=== PATIENT | male | born 1930 | race Caucasian/White ===

== ENCOUNTER 2016-06-23 09:59 | Inpatient (IN) | payer MEDICARE ==
--- NOTE | ~2016-06-23 | CN ---
Consultation Report [facility] [address] [place]. [address] NAME: TERRY MALONE : 31 STATUS : ADM IN PAT#: [id number] AGE: 86 ADM/REG DATE : 06/23/16 MR#: [id number] REPORT SERV DATE: 06/25/16 DICTATED BY: CARMEN MANZANARES DATE: 06/24/16 REPORT STATUS : Draft TRANSCRIBED BY: MODL DATE: 06/24/16 PULMONARY CONSULTATION DATE OF CONSULTATION: 06/24/2016 REASON FOR CONSULTATION: Worsening infiltrates. HISTORY OF PRESENT ILLNESS: Mr. Malone is an 86-year-old, white male, with minimal smoking history who was admitted with three-week history of cough productive of very thick/sticky yellow sputum with minimal "specks" of bright red blood. He was found to have multifocal infiltrates with bilateral effusions on CT angiogram of the chest that was worse when compared to an outside CT scan of the chest done 05/31/2016 so Pulmonary was consulted for assistance. He has had outpatient oral antibiotics including Levaquin and azithromycin without improvement in his symptoms. He reports a three-week history of malaise, dyspnea, and chills but no weight loss. He describes a good appetite over the past several weeks. He has had a similar episode approximately one year ago with a poor response to antibiotics and at that time, he had 31 pound weight loss. He eventually improved with more aggressive treatment and has been okay from a Pulmonary standpoint since then, until his current illness. Since admission, he has had IV antibiotics, bronchodilators, and IV Lasix along with supplemental oxygen. He reports now he feels significantly better. He is on Zosyn and Levaquin. PAST MEDICAL HISTORY: 1. Pneumonia approximately one year ago. 2. Hypothyroidism. 3. GERD. 4. Degenerative joint disease. 5. Depression/anxiety. 6. Previous bilateral inguinal hernia repair years ago. FAMILY HISTORY: He denies a family history of pulmonary diseases. SOCIAL HISTORY: Mr. Malone smoked less than one pack of cigarettes per day while in the . He states he smoked for approximately two years and quit more than 50 years ago. He denies ethanol intake, past/present drug use, chewing tobacco, or occupational exposures. He is and does not have children. MEDICATIONS: Outpatient and inpatient medications were reviewed and are as documented in the record. He was on no outpatient pulmonary medications. ALLERGIES: HE DENIES MEDICATION ALLERGIES. Consultation Report [place] [id number] [facility] [place]. [address] NAME: TERRY MALONE : 31 STATUS : ADM IN PAT#: [id number] AGE: 86 ADM/REG DATE : 06/23/16 MR#: [id number] REPORT SERV DATE: 06/25/16 DICTATED BY: CARMEN MANZANARES DATE: 06/24/16 REPORT STATUS : Draft TRANSCRIBED BY: MODL DATE: 06/24/16 REVIEW OF SYSTEMS: A 10-point system review was conducted and is remarkable for the symptoms as described in the history of present illness. He denies weight loss, as noted above. He denies chest pain or wheezing. PHYSICAL EXAMINATION: VITAL SIGNS: Temperature 96.9 degrees, heart rate 70, blood pressure 109/55, respiratory rate 18, and oxygen saturation 99% on supplemental oxygen at a flow rate of 4 L/minute. GENERAL: A well-nourished, well-developed white male. Alert, oriented, no apparent distress. HEENT: Normocephalic. Atraumatic. There is no scleral icterus. The conjunctivae are clear. The oropharynx is clear. NECK: Supple. No lymphadenopathy was appreciated. LUNGS: There are diminished breath sounds at both bases. There are faint bibasilar crackles. There are few coarse rhonchi. No wheezes were noted. HEART: Regular rate and rhythm. No ectopy was appreciated. ABDOMEN: Soft. Nontender. Nondistended. There are normal bowel sounds in all four quadrants. BILATERAL EXTREMITIES: There is no clubbing, cyanosis, or edema. NEUROLOGICAL: A limited exam was found to be nonfocal. SKIN: No rashes were noted. LABORATORY RESULTS: Labs were reviewed and are as documented in the record. Notable labs include a white blood cell count of 8.7. The procalcitonin is less than 0.05. The BNP is 3175.2. On admission, an arterial blood gas revealed a pH of 7.43, pCO2 of 25, and pO2 of 59. There is a sputum culture pending. IMAGING: The chest CT angiogram done this admission revealed a right upper lobe infiltrate and patchy left upper lobe infiltrates as well as mild mediastinal lymphadenopathy and small bilateral pleural effusions. The left upper lobe infiltrate is new and the right upper lobe infiltrate has increased significantly when compared with an outside CT scan of the chest done 05/31/2016. ASSESSMENT AND PLAN: Mr. Malone is an 86-year-old, white male, former smoker, with worsening infiltrates, productive cough, and scant hemoptysis consistent with infection. Additionally, he has bilateral pleural effusions and an elevated BNP consistent with volume overload. RECOMMEND: 1. Diuresis. 2. Continue antibiotics-I would continue Zosyn and Levaquin. 3. Pulmonary toilet. Add EZPAP and flutter valve to his regimen. Consultation Report [facility] [address] [place]. [address] NAME: TERRY MALONE : 31 STATUS : ADM IN [facility]#: [id number] AGE: 86 ADM/REG DATE : 06/23/16 MR#: [id number] REPORT SERV DATE: 06/25/16 DICTATED BY: CARMEN MANZANARES DATE: 06/24/16 REPORT STATUS : Draft TRANSCRIBED BY: KRISTAL DATE: 06/24/16 4. Bronchodilators. He is currently on DuoNeb but this could be changed to albuterol only. 5. Add nebulized steroids as this may help with wheezing that was noted on previous exam done by another physician. Recommend followin. His chest imaging. If there is no improvement clinically or radiographically, then would consider bronchoscopy. Thank you very much for this consultation. PS/MODL Carmen Manzanares M.D. / [id number] CC: Meliza Soto M.D.
--- NOTE | ~2016-06-23 | CN ---
Consultation Report [facility] [address] [place]. [address] NAME: TERRY ABRAHAM : 32 STATUS : ADM IN PAT#: [id number] AGE: 86 ADM/REG DATE : 06/23/16 MR#: [id number] REPORT SERV DATE: 06/24/16 DICTATED BY: JENSEN KAY DATE: 06/23/16 REPORT STATUS : Draft TRANSCRIBED BY: MODL DATE: 06/23/16 CARDIOLOGY CONSULT DATE OF CONSULTATION: REFERRING REASON: Question of heart failure, hemoptysis, and pneumonia. HISTORY OF PRESENT ILLNESS: This is an 86-year-old white gentleman, who is unfortunately very poor historian and we do not have any records at [facility]. He was admitted earlier today to Hospitalist Service for recurrent pneumonia, lung mass, and hemoptysis. Information has been obtained from the patient and his . He has been followed by his primary care physician. He has reportedly two pneumonias recently and has been started on antibiotics. He has been coughing up yellow sputum over the last six weeks with four weeks coughing of blood. Small amount of the blood every day with cough noted general weakness and shortness of breath, but no chest pain. No lower extremity edema. No weight changes. He denied any recent fever or chills. He had a CT of the chest performed one week ago at the [facility] and has pending pulmonary evaluation, but before this could happen, he was admitted to hospital. Chest x-ray in the emergency revealed perihilar infiltrates with some right upper lung infiltrate. This has been confirmed by CT, which revealed a complex mass with right upper lobe infiltrate and small pleural effusion. Brain natriuretic peptide is elevated up to 1800. The patient admitted to have some palpitations particularly on the left side. He has reported abnormal exercise treadmill 10 years ago. Elsewhere, he has never been told about abnormal electrocardiogram. EKG in the emergency room revealed left bundle-branch block which is likely underlying atrial fibrillation, heart rate in the 80s. The patient is currently chest pain free on oxygen via nasal cannula without any palpitations or chest pain. He is not on monitor bed. No cardiac enzymes were obtained. No fall history obtainable from the patient. PAST MEDICAL HISTORY: COPD with remote history of smoking. Denies history of recurrent pneumonia. Denies gastroesophageal reflux disease. Denies hearing loss. Denies history of hernia repair. ALLERGIES: NO KNOWN DRUG ALLERGIES. HOME MEDICATIONS: Zithromax, Flonase, hydrocodone, Synthroid, nortriptyline 50 mg once a day, omeprazole 20 mg twice a day, Zoloft 100 mg once a day, and Restoril 15 mg once a day. SOCIAL HISTORY: The patient is . He is retired. He reportedly quit smoking more than 50 years ago. Did not drink alcohol or use street drugs. He is not using oxygen at home. He is walking without any support. FAMILY HISTORY: Negative for sudden cardiac premature in the family. PHYSICAL EXAMINATION: Consultation Report [address] [place]. [address] NAME: TERRY ABRAHAM : 32 STATUS : ADM IN [facility]#: [id number] AGE: 86 ADM/REG DATE : 06/23/16 MR#: [id number] REPORT SERV DATE: 06/24/16 DICTATED BY: JENSEN KAY DATE: 06/23/16 REPORT STATUS : Draft TRANSCRIBED BY: KRISTAL DATE: 06/23/16 GENERAL: Elderly gentleman, in no acute distress, hard hearing. VITAL SIGNS: Blood pressure 129/87, heart rate 80, irregularly irregular. LUNGS: Have wheezing and few crackles over the right lung. HEART: Irregularly irregular heart rate. EXTREMITIES: Lower extremities, decreased pedal pulses bilaterally, but no edema. HEENT - Pupils reactive to light and accommodation. Moist mucosa membrane. NECK: No JVD. Normal carotid upstroke. No carotid bruits. COR: Normal S1, S2. No S3 or S4. No significant rub or murmurs. ABD: Soft, nontender, nondistended. EXT: No edema. Pedal pulses strong and equal bilaterally. SKIN: Warm with normal turgor. MS - No kyphosis. NEURO/PSY - Alert and oriented. Nonfocal. LABORATORY DATA: CBC remarkable for hemoglobin 12. INR 1.4. BNP 1890. Chest x-ray and CT as above. Electrocardiogram revealed what looks like to be irregularly irregular wide- complex rate with left bundle morphology likely underlying atrial fibrillation. ASSESSMENT AND PLAN: 1. Recurrent pneumonia with concern for right lung mass and hemoptysis. 2. Left bundle-branch block of unknown duration. 3. Likely atrial fibrillation. The patient should be transferred to monitored bed. His cardiac enzymes should be checked. We will start him on carvedilol and plan for echocardiogram tomorrow. We will also recheck electrocardiogram and TSH. He should be seen by selling specialist. He may have tuberculosis versus lung cancer due to his hemoptysis over the last month and concerning CT. No previous cardiac history. Thank you for the consult. CAMPBELL/KRISTAL Jensen Kay M.D. / [id number] CC: MD Zacarias Dorsey M.D.
--- NOTE | ~2016-06-23 | CN ---
Consultation Report [facility] [address] [place]. [address] NAME: TERRY ABRAHAM : 31 STATUS : ADM IN PAT#: [id number] AGE: 86 ADM/REG DATE : 06/23/16 MR#: [id number] REPORT SERV DATE: 06/27/16 DICTATED BY: FRANKIE BRIGGS DATE: 06/27/16 REPORT STATUS : Draft TRANSCRIBED BY: MODL DATE: 06/27/16 CONSULTATION DATE OF CONSULTATION: REASON FOR CONSULTATION: Chronic kidney disease with possible upcoming cardiac catheterization. HISTORY OF PRESENT ILLNESS: This is a very pleasant 86-year-old male patient, whom is accompanied at bedside by his . We are asked to evaluate the patient by Dr. Viviane Valdez for evaluation of chronic kidney disease with plan for possible cardiac catheterization. The patient was admitted initially on 06/23/2016, with the complaint of increasing shortness of breath, cough, and hemoptysis for approximately three weeks. He was noted to have bilateral upper lobe pneumonia and was placed inpatient in favor of further antibiotics and supportive workup. He was seen in consultation by Pulmonary Services, and has been deemed to have no malignancy or mass in his chest CT, and has been treated successfully with antibiotics. There was also some level of confusion on presentation, but this has resolved as the patient has proceeded. He has underwent echocardiogram during his hospital stay and was noted to have a severely decreased ejection fraction at 10% to 15% with RVSP at 37 mmHg. He was also noted to have severe mitral regurg. We are asked to evaluate him in consultation to optimize his serum creatinine for possible cardiac catheterization by Cardiology Services. Dr. Hill has provided initial consultation to this patient and the patient advises that he is currently considering his healthcare options and has not at this point determined that he will also undergo cardiac catheterization. He is also being seen today for a swallow evaluation regarding possibility of ongoing aspiration. He is currently on a heparin drip and states he has no active chest pain. No nausea, vomiting, or diarrhea. He is awake, alert, and oriented during evaluation. His is at bedside and participates in evaluation in [facility]. PAST MEDICAL HISTORY: Positive for recent pneumonia with recurrence degenerative joint disease, osteoarthritis, hypothyroidism, depression, and GERD. PAST SURGICAL HISTORY: Includes bilateral hernia repair. SOCIAL HISTORY: Remote history of smoking, but no ongoing tobacco use. No EtOH. No illicit drugs. FAMILY HISTORY: Noncontributory. Not reviewed during this consultation and dictation. ALLERGIES: HE HAS NO KNOWN ALLERGIES. ACTIVE MEDICATIONS: ASA 81 mg daily, 3.125 mg carvedilol p.o. b.i.d., cholecalciferol 400 mg p.o. daily, fluticasone and AST sprays daily, folic acid 1 mg p.o. daily, furosemide 20 mg daily, guaifenesin 600 mg p.o. t.i.d., Levaquin 750 mg p.o. q.48 hours, Synthroid 112 mcg Consultation Report [facility] [address] [place]. [address] NAME: TERRY ABRAHAM : 32 STATUS : ADM IN PAT#: [id number] AGE: 86 ADM/REG DATE : 06/23/16 MR#: [id number] REPORT SERV DATE: 06/27/16 DICTATED BY: FRANKIE BRIGGS DATE: 06/27/16 REPORT STATUS : Draft TRANSCRIBED BY: KRISTAL DATE: 06/27/16 p.o. ACB, multivitamin one tab, nortriptyline 50 mg p.o. at bedtime, Protonix 40 mg p.o. b.i.d., Zosyn q.8 hours 2.375 g, heparin drip via sliding scale in weight based protocol, p.r.n. medications for anti pain, anti nausea, and electrolyte protocol are also listed on the MAR. PHYSICAL EXAMINATION: VITAL SIGNS: Blood pressure 112/70, temperature 97.8, respiratory rate 18, and heart rate is 60 beats per minute. GENERAL: He is awake, alert, and oriented. In no acute distress during evaluation. HEENT: Normocephalic and atraumatic. Normal ocular movements. No scleral icterus or conjunctival pallor is appreciated. NECK: Supple without thyromegaly. No JVD or mass. CHEST: Shows holosystolic murmur consistent with severe mitral regurgitation. Lungs diminished with essentially clear to auscultation with some late crackles, but without wheeze. GASTROINTESTINAL: Positive bowel sounds in all four quadrants. No appreciable mass or tenderness. GENITOURINARY: Examination is deferred. EXTREMITIES: Show positive pulses without clubbing, cyanosis, or edema. NEUROLOGIC: The patient appears to be grossly intact and nonfocal. SKIN: Warm, dry, and intact to visualized surfaces. No rash, lesions, or ecchymosis. PSYCHIATRIC: He is of appropriate mood and affect. LABORATORY DATA: Pertinent laboratories and imaging to this evaluation; blood cultures are negative for growth at four days. Electrolyte profile shows sodium 138, potassium 3.3, chloride 103, CO2 25, BUN 45, creatinine 1.92, reflected GFR 31 mL/minute, glucose of 129, calcium 9.1. Most recent PA chest and lateral demonstrates persistent bilateral upper lobe infiltrates consistent with a completely resolved bilateral upper lobe pneumonia, right greater than left, with a trace remaining pleural effusion. Most recent CBC, WBC 10.1, RBC 3.57, hemoglobin 12.0, hematocrit 36.0, and platelets at 142. IMPRESSION AND PLAN: An 86-year-old male patient, admitted initially with bilateral upper lobe pneumonia as demonstrated on imaging. Seen in consultation by Cardiology, as well as Pulmonary Services, and now by speech pathology for evaluation of possible aspiration. Noted on echocardiogram to have a decreased ejection fraction ranging from 10% to 15% by evaluation, severe mitral regurgitation with RVSP at 37 mmHg. I discuss with his who was at bedside this morning, as well as the patient has high risk for contrast induced nephropathy with a creatinine of 1.92. Measures to optimize his serum creatinine would include a very gentle administration of IV fluids plus or minus Mucomyst, as current data suggest that administration of Mucomyst has less of a role than simply hydrating with normal saline. However, given his very tenuous cardiac function, he would be difficult to hydrate without placing him in volume overload. Speech pathology has evaluated the patient and suggest that he is not currently having difficulty with aspiration. The patient is advised of his high risk for contrast induced nephropathy. He is not a viable hemodialysis candidate should his creatinine worsened and rise to the level needing Consultation Report [place] [id number] [place]. [address] NAME: TERRY ABRAHAM : 32 STATUS : ADM IN PAT#: [id number] AGE: 86 ADM/REG DATE : 06/23/16 MR#: [id number] REPORT SERV DATE: 06/27/16 DICTATED BY: FRANKIE BRIGGS DATE: 06/27/16 REPORT STATUS : Draft TRANSCRIBED BY: MODMar DATE: 06/27/16 hemodialysis. He and his who is at bedside are advised of this today. It does not appear that the current review with the patient that he has completely decided that he will go forward with cardiac catheterization. Would of course continue to avoid RONNIE inhibitors as well as ARBs, avoid nonsteroidal medications, and watch the patient closely with fluid restriction as you currently are. We will forego initiation of pre cath fluids currently as it is not clear when this procedure currently will be undertaken. Further modification of treatment plan may be made based on clinical presentation, patient's laboratory results, further consultation with renal attending. We appreciate the consultation. We are glad to follow with you. DICTATED BY: Scott Calvin NP JR/KRISTAL Frankie Briggs M.D. / [id number] CC: Meliza Soto M.D.
--- NOTE | ~2016-06-23 | HP ---
History And Physical [facility] [address] [place]. [address] NAME: TERRY ABRAHAM : 31 STATUS : ADM IN [facility]#: [id number] AGE: 86 ADM/REG DATE : 06/23/16 MR#: [id number] REPORT SERV DATE: 06/23/16 DICTATED BY: TERESA WARNER DATE: 06/23/16 REPORT STATUS : Draft TRANSCRIBED BY: MODL DATE: 06/23/16 DATE OF ADMISSION: 06/23/2016 CHIEF COMPLAINT: Increasing shortness of breath, cough, and hemoptysis for about three weeks. HISTORY OF PRESENT ILLNESS: This is a very pleasant 86-year-old gentleman, very poor historian. He has a prior history of pneumonia, history of hypothyroidism, GERD, depression, degenerative joint disease, osteoarthritis. No other significant prior medical history, presenting today to [facility] with complaints that started about three weeks ago with cough, productive sputum, increasing shortness of breath, and some hemoptysis that started for few days. It is important to note that the patient has seen his primary care provider, Dr. Zacarias Peres and he has been on several courses of antibiotic treatment. According to the patient, at least he went on Levaquin and also Z-Sudheer; however, the patient's symptoms has not improved. Actually, his shortness of breath get progressively worse. He has been complaining of palpitations and coughing up productively with some hemoptysis that started for few days. He also says that he has been lost some weight recently with decreased appetite. As a result of the progressiveness of the symptoms, he has decided today to come to [facility]. He had some chest pain with coughing and some palpitations. He has not had any PND or orthopnea. No swelling. No other complaints. The patient underwent CT of the chest with PE protocol showing an increased right upper lobe infiltrate consistent with worsening of pneumonia and patchy left upper lobe infiltrate as well as small pleural effusions with some lymph adenopathy that might be reactive. After evaluation in the emergency room, Hospitalist Service has been asked for admission, further evaluation, and treatment. PAST MEDICAL HISTORY: Significant for recent pneumonia, degenerative joint disease, osteoarthritis, hypothyroidism, depression, GERD. PAST SURGICAL HISTORY: Include bilateral hernia repair. PAST SOCIAL HISTORY: He is not a smoker. He smoked for short period of time when he was in his 20th. No alcohol. No IV drugs. He says he did not have any drug allergies. FAMILY HISTORY: Significant for cancer. MEDICATIONS: At home include Z-Sudheer, vitamin D, Flonase, [place], Motrin, Synthroid, Pamelor, Prilosec, Zoloft, simethicone, and Restoril. REVIEW OF SYSTEMS: A 14-point review of systems has been obtained and pertinent positive has been listed into the history of present illness. Otherwise, negative, except those underlying above. PHYSICAL EXAMINATION: VITAL SIGNS: Currently, the patient is afebrile. Blood pressure 121/79, heart rate 85, respiratory rate 24, and saturating 95% on 2 L of oxygen. History And Physical [address] [address] NAME: TERRY ABRAHAM : 32 STATUS : ADM IN PAT#: [id number] AGE: 86 ADM/REG DATE : 06/23/16 MR#: [id number] REPORT SERV DATE: 06/23/16 DICTATED BY: TERESA WARNER DATE: 06/23/16 REPORT STATUS : Draft TRANSCRIBED BY: KRISTAL DATE: 06/23/16 GENERAL: He is a very pleasant gentleman that he is in mild respiratory distress. He is alert and oriented x3. He is nonfocal. He follows all his commands appropriately. HEENT: Show pupils equal, round, reactive to light. Extraocular movements intact. No JVD. No lymphadenopathy. No thyromegaly appreciated. CHEST: Evaluation shows bilateral air entry, clear anteroposterior. No wheezes, but some rhonchi and no crackles that I can appreciate. CARDIOVASCULAR: He has regular rate and rhythm. S1 and S2 positive. No S3. No S4. No murmurs, rubs, or gallops appreciated. ABDOMEN: Soft with positive bowel sounds. Nontender. No guarding. No rebound. EXTREMITIES: No clubbing or cyanosis. No edema. NEUROLOGIC: He is alert and oriented x3. He is nonfocal. He follows all his commands appropriately. LABORATORY DATA: Labs from today include an ABG; 7, 43, 25, 59 on 21% FiO2. His sodium 143, potassium 4.7, chloride 110, CO2 of 22, BUN 38, creatinine 1.50, glucose is 112. His total bilirubin is 0.8, alkaline phosphatase 106, ALT 28, AST 25, and his BNP was 1890.5, lactate is 1. White count 9.2, hemoglobin 12, hematocrit 36, platelets are 151. INR is 1.4. Influenza screen is negative. UA has been negative. Blood cultures that have been performed in the emergency room are currently pending. There is CT of the chest with PE protocol performed in the emergency room and it shows that there is right upper lobe infiltrate consistent with a worsening pneumonia and if this continued to worsen, the appropriate treatment may be followed up to exclude the possibility of bronchoalveolar carcinoma, which may need to be considered and stable patchy left upper lobe infiltrate with slight increase in small bilateral pleural effusion and lymphadenopathy. There is EKG performed in the emergency room, which shows that the patient does have a left bundle-branch block and PVCs. ASSESSMENT: This is a very pleasant 86-year-old gentleman, presenting with increasing shortness of breath, productive cough, and hemoptysis with: 1. Right upper lobe infiltrate as well as left upper lobe infiltrate. 2. Hypoxic respiratory failure. 3. Questionable congestive heart failure. 4. Left bundle-branch block. 5. Likely chronic kidney disease. 6. History of gastroesophageal reflux disease. 7. Hypothyroidism. PLAN: 1. The patient is going to be admitted to Hospitalist Service. Place him on oxygen, IV antibiotics. We are going to check procalcitonin level, sputum Gram stain and culture, urine Legionella and pneumococcal antigen. Nebulizer treatment. Aggressive pulmonary toilet and we are going to consult Pulmonology, Dr. Carmen Michaels to evaluate the patient for further recommendation. 2. Hypoxic respiratory failure secondary to above. We will place the patient on oxygen, aggressive pulmonary toilet as well. 3. Left bundle-branch block. Questionable congestive heart failure. We are going to rule him out for PR by serial cardiac enzymes, serial EKG. Perform a 2D echo. We are going History And Physical [address] [address] NAME: TERRY ABRAHAM : 32 STATUS : ADM IN [facility]#: [id number] AGE: 86 ADM/REG DATE : 06/23/16 MR#: [id number] REPORT SERV DATE: 06/23/16 DICTATED BY: TERESA WARNER DATE: 06/23/16 REPORT STATUS : Draft TRANSCRIBED BY: MODMar DATE: 06/23/[address] on small doses of beta-julee and consult Cardiology for further recommendation. 4. Likely mild mnqai-ht-vfkxyse kidney disease. We are going to check UA, urine culture. Just mild hydration and strict I's and O's, strict daily weights. We are going to check renal ultrasound as well. Check spot urine for sodium, creatinine, and sodium osmolality. 5. Hypothyroidism. We will continue his home medication. Check a TSH and a free T4. 6. History of GERD. We are going to continue his home medication. We are also going to provide reasonable pain and nausea control as well as GI and DVT prophylaxes with SCDs. That has been discussed extensively with the patient as well as the patient's family. All the questions have been answered in full. Further workup and recommendation pending above. It is worthwhile to note that the patient is going to be followed up by Dr. Larry Alvarez. [facility] Teresa Warner M.D. / [id number] CC: MD Zacarias Dorsey M.D.
--- NOTE | ~2016-06-23 | DS ---
Discharge Summary [facility] [address] [place]. [address] NAME: TERRY ABRAHAM : 32 STATUS : DIS IN PAT#: [id number] AGE: 86 ADM/REG DATE : 06/23/16 MR#: [id number] REPORT SERV DATE: 07/02/16 DICTATED BY: ELVIS XAVIER DATE: 07/01/16 REPORT STATUS : Draft TRANSCRIBED BY: MODL DATE: 07/01/16 ADMISSION DATE: 06/23/2016 DISCHARGE DATE: 07/01/2016 DISCHARGE DIAGNOSES: 1. Congestive heart failure. New diagnosis EF of 10-15%, stable. 2. Possible bilateral pneumonia, ruled out. 3. Pulmonary edema. 4. Chronic kidney disease stage 3, stable. 5. Generalized weakness. CONSULTATION: 1. Pulmonary Dr. Michaels 06/24/2016. 2. Cardiology, Dr. Hill 06/23/2016. 3. Renal Dr. Briggs on 06/27/2016. IMAGIN. Chest x-ray, 06/23/2016, impression, cardiomegaly with perihilar infiltrates versus pulmonary edema or both. We had a CT from 05/07/2016, done elsewhere demonstrating moderately sized pleural effusion, cardiomegaly, heavy coronary artery disease of the LAD and circumflex. 2. CTA of chest, 06/23/2016, impression increased right upper lobe infiltrate consistent with worsening pneumonia. If this continues to worsen or appropriate therapy followup to exclude the possibility of a bronchoalveolar cell carcinoma would need to be considered. Stable patchy left upper lobe infiltrate. Slight increase in small pleural effusion. Similar appearance of mediastinal lymph nodes, which appear enlarged and also contain calcifications. 3. Echocardiogram 06/24/2016. Impression branch vessel coronary artery disease involving the mid right posterior descending coronary artery. This is out of proportion to the patient's global LV dysfunction. Otherwise, normal epicardial coronary arteries. Moderate to severely elevated left ventricular end-diastolic pressure, LVEDP 25. The patient's formal angiogram suggest severely compromised forward cardiac output very slow. 4. Cardiac stent. Recommendations therapy for nonischemic cardiomyopathy. 5. Echocardiogram 06/24/2016 severe left ventricular dysfunction with ejection fraction estimate is in the low 10s anteroseptal kinesis. Dilated left ventricle atrium and left atrium. Severely compromised right ventricular function. Severe mitral regurgitation. Moderate tricuspid regurgitation. 6. Chest x-ray, 06/26/2016, impression persistent bilateral upper lobe infiltrates consistent with incompletely resolved bilateral upper lobe pneumonia right greater than left. Trace remaining pleural effusion. 7. Chest x-ray, 07/29/2016. Impression worsening left upper lobe consolidation since recent prior exams with continued right upper lobe consolidation. Poorly visualized suspected small left pleural effusion. LABORATORY DATA: 07/01/2016 WBCs 9.1, hemoglobin 9.7, hematocrit is 29.3, and platelet count Discharge Summary [address] [address] NAME: TERRY ABRAHAM : 32 STATUS : DIS IN PAT#: [id number] AGE: 86 ADM/REG DATE : 06/23/16 MR#: [id number] REPORT SERV DATE: 07/02/16 DICTATED BY: ELVIS XAVIER DATE: 07/01/16 REPORT STATUS : Draft TRANSCRIBED BY: KRISTAL DATE: 07/01/16 is 103, BUN is 43, creatinine is 1.55. HOSPITAL STAY: Please refer to history and physical dictated by Dr. Teresa Saldana on 06/23/2016 for complete admission details as well as consultation note by Dr. Michaels, Dr. Hill, and Dr. Briggs. This patient is an 86-year-old male, who presented to [facility] Emergency Room with complaints of increased shortness of breath, cough, and hemoptysis for approximately three weeks. The patient stated that he has prior history of pneumonia, hypothyroidism, GERD, depression, degenerative joint disease, and osteoporosis. The patient stated his primary care provider Dr. Peres had placed him on several rounds of antibiotics, but has not improved. The patient was admitted to the hospital to evaluate and further treatment. Consultation as noted above. It was noted the patient had a new diagnosis of congestive heart failure with an EF of 10-15% and Cardiology would follow the patient during his hospital stay. The patient did undergo a cardiac stent, which is noted above. No stent was placed at that time. The patient is noted in sinus rhythm with bundle branch block. He is started on Eliquis 2.5 mg 1 twice daily. The patient will follow up with his primary care in one week for followup lab work. Platelet count is less than noted at 103 at this time. The patient is aware and will follow up with his primary care. The patient is noted with possible bilateral pneumonia. Pulmonology was following the patient. As noted, the patient had pulmonary edema. The patient was diuresed. Initially, placed on Zosyn upon admission this was discontinued. The patient was monitored. He had no signs of pneumonia. The patient will follow up with Pulmonary outpatient. The patient was also noted with increased creatinine upon admission. Renal did follow the patient at this time. BUN is 43, creatinine is 1.55. The patient will follow up with Nephrology outpatient. The patient did have complaints of generalized weakness. Evaluation was obtained for physical therapy and possible placement of rehab. The patient did refuse rehab or penitentiary has requested to go home. Home Health and Physical Therapy will be arranged outpatient. DISCHARGE MEDICATIONS: 1. Coreg 6.251 p.o. twice daily. 2. Vitamin D 400 units one p.o. daily. 3. Flonase nasal spray, one spray p.r.n. for congestion. 4. Synthroid 112 mcg p.o. every morning. 5. Multivitamin every day. 6. Nortriptyline 50 mg one p.o. at bedtime. 7. Prilosec 20 mg one p.o. twice daily. 8. Zoloft 100 mg one p.o. daily. 9. Restoril 50 mg one p.o. at bedtime. 10.Simethicone 125 mg tablet 1 p.o. p.r.n. daily. 11.Hydrocodone 10/325 one p.o. every 6 hours p.r.n. for pain. This discharge took greater than 30 minutes in corroboration with nursing staff, case resolution specialist, and home health. [facility] Discharge Summary [address] [address] NAME: TERRY ABRAHAM : 32 STATUS : DIS IN PAT#: [id number] AGE: 86 ADM/REG DATE : 06/23/16 MR#: [id number] REPORT SERV DATE: 07/02/16 DICTATED BY: ELVIS XAVIER DATE: 07/01/16 REPORT STATUS : Draft TRANSCRIBED BY: KRISTAL DATE: 07/01/16 Elvis Xavier NP / [id number] CC: MD Zacarias Bo M.D.
[2016-06-23 10:55] LABS: BASOPHILS 0.5 %; BASOPHILS ABSOLUTE 0.05 10/3/uL (0.0-0.16); EOSINOPHILS 1.4 %; EOSINOPHILS ABSOLUTE 0.13 10/3/uL (0.0-0.53); HEMOGLOBIN 12.1 g/dL (13.6-17.8); IMMATURE GRANULOCYTES 0.1 %; IMMATURE GRANULOCYTES ABSOLUTE 0.01 10/3/uL (0.0-0.11); LYMPHOCYTES 9.1 %; LYMPHOCYTES ABSOLUTE 0.84 10/3/uL (0.67-4.30); MEAN CORPUS HGB CONC 33.6 g/dL (32.0-36.0); MEAN CORPUSCULAR HEMOGLOB 34.1 pg (26.0-34.0); MEAN CORPUSCULAR VOLUME 101.4 fL (80-100); MEAN PLATELET VOLUME 12.5 fL (9.2-13.0); MONOCYTES 8.4 %; MONOCYTES ABSOLUTE 0.78 10/3/uL (0.21-1.20); NEUTROPHILS 80.5 %; NEUTROPHILS ABSOLUTE 7.43 10/3/uL (2.02-8.40); PLATELET COUNT 151 10/3/uL (150-400); RBC DISTRIBUTION WIDTH 14.9 % (12.0-16.0); RED CELL COUNT 3.55 10/6/uL (4.7-6.1); WHITE BLOOD CELLS 9.2 10/3/uL (4.5-10.5)
[2016-06-23 10:56] LABS: MANUAL DIFF NO %
[2016-06-23 11:03] LABS: INTERNATIONAL NORMAL RATI 1.4 UNITS (-); PROTIME (NOT ORD) 16.9 SEC (12.0-14.5)
[2016-06-23 11:04] LABS: PARTIAL THROMBO TIME 33.7 SEC (22.5-37.2)
[2016-06-23 11:17] LABS: ALBUMIN 3.7 G/DL (3.5-5.0); CALCIUM, SERUM 9.1 MG/DL (8.5-10.4); CHLORIDE, SERUM 110 MMOL/L (96-112); CO2 (CARBON DIOXIDE) 22 MMOL/L (24-34); GFR AFRICAN AMERICAN 49 ML/MIN (>=60); GFR NON AFRICAN AMERICAN 42 ML/MIN (>=60); GLUCOSE, SERUM 112 MG/DL (60-99); POTASSIUM, SERUM 4.7 MMOL/L (3.5-5.3); SGOT(AST) 25 U/L (5-40); SGPT(ALT) 28 U/L (5-65); SODIUM, SERUM 143 MMOL/L (135-148); TOTAL BILIRUBIN 0.8 MG/DL (0-1.2); TOTAL PROTEIN 7.1 G/DL (6.0-8.5)
[2016-06-23 11:18] LABS: INSTRUMENT SERIAL # 8087; pH 7.43 (7.37-7.43)
[2016-06-23 11:18] LABS: A/G RATIO 1.1 (0.7-1.9); ALKALINE PHOSPHATASE 106 U/L (45-117); BUN (BLOOD UREA NITROGEN) 38 MG/DL (6-23); GLOBULIN 3.4 G/DL (2.5-4.1)
[2016-06-23 11:19] LABS: ALLENS TEST Pos; BE (BASE EXCESS) -6.4 MEQ/L (0 +/- 2.5); CARBOXYHEMOGLOBIN 1.6 % (0-3); HCO3 (ACTUAL BICARBONATE) 16.2 MEQ/L (23-27); HEMOBLOGIN CONTENT 12.8 G/DL (14-18); METHEMOGLOBIN 0.1 % (0-3); O2 CONTENT 16.4 VOL% (18-24); PCO2 (CO2 TENSION) 25 MMHG (35-45); PO2 (O2 TENSION) 59 MMHG (79-93); SAMPLE Arterial
[2016-06-23 11:19] LABS: ASCORBIC ACID (UR NOT ORDER) NEG (NEG); BILIRUBIN, URINE NEGATIVE (NEG); ER URINALYSIS TAT 0 Hrs 11 Mins; KETONE, URINE TRACE MG/DL (NEG); LEUKOCYTE ESTERASE(NOT OR NEG (NEG); NITRITE (URINE) NEG (NEG); WBC (NOT ORDERED) (RFLEX) < 1 (0-5)
[2016-06-23 11:24] LABS: INFLUENZA A SCREEN NEGATIVE (NEGATIVE); INFLUENZA B SCREEN NEGATIVE (NEGATIVE)
[2016-06-23] MEDS ORDERED: IBU400 PO (15:03)
[2016-06-23] MEDS ORDERED: FLONASE NAS (15:03)
[2016-06-23] MEDS ORDERED: REST15 PO (15:04)
[2016-06-23] MEDS ORDERED: MYTAB GAS125 MG PO (15:05)
[2016-06-23] MEDS ORDERED: SYN112 PO (15:06)
[2016-06-23] MEDS ORDERED: PRILO PO (15:06)
[2016-06-23] MEDS ORDERED: VITAMIN D400 UNI1 PO (15:07)
[2016-06-23] MEDS ORDERED: ZOL100 PO (15:07)
[2016-06-23] MEDS ORDERED: NOR50 PO (15:07)
[2016-06-23] MEDS ORDERED: NORCO1 TAB PO (15:14)
[2016-06-23 15:17] LABS: PROCALCITONIN <0.05 ng/mL (<0.5)
[2016-06-23] MEDS ORDERED: Z-PAK PO (15:17)
[2016-06-23 20:12] LABS: INTERNATIONAL NORMAL RATI 1.3 UNITS (-); PARTIAL THROMBO TIME 33.6 SEC (22.5-37.2); PROTIME (NOT ORD) 16.5 SEC (12.0-14.5)
[2016-06-23 20:19] LABS: B NATRIURETIC PEPTIDE (BNP) 2675.4 PG/ML (< 100.0)
[2016-06-23 21:06] LABS: C-REACTIVE PROTEIN 15.2 MG/L (<8.0); CPK 143 U/L (0-200); FREE T4 1.07 NG/DL (0.76-1.46); PHOSPHORUS, SERUM 2.6 MG/DL (2.5-4.5)
[2016-06-23 21:07] LABS: FOLATE 24.4 NG/ML (>5.2)
[2016-06-23 21:13] LABS: PROCALCITONIN < 0.05 ng/mL (<0.5)
[2016-06-23 22:48] LABS: GLYCOHEMOGLOBIN (HbA1c) 5.4 % (4.7-6.1)
[2016-06-24 03:20] LABS: BASOPHILS 0 %; EOSINOPHILS 0 %; HEMOGLOBIN 11.7 g/dL (13.6-17.8); IMMATURE GRANULOCYTES 0.1 %; IMMATURE GRANULOCYTES ABSOLUTE 0.01 10/3/uL (0.0-0.11); LYMPHOCYTES 6.1 %; LYMPHOCYTES ABSOLUTE 0.53 10/3/uL (0.67-4.30); MEAN CORPUS HGB CONC 33.4 g/dL (32.0-36.0); MEAN CORPUSCULAR HEMOGLOB 33.8 pg (26.0-34.0); MEAN CORPUSCULAR VOLUME 101.2 fL (80-100); MEAN PLATELET VOLUME 12.9 fL (9.2-13.0); MONOCYTES 3.3 %; MONOCYTES ABSOLUTE 0.29 10/3/uL (0.21-1.20); NEUTROPHILS 90.5 %; NEUTROPHILS ABSOLUTE 7.83 10/3/uL (2.02-8.40); PLATELET COUNT 151 10/3/uL (150-400); RED CELL COUNT 3.46 10/6/uL (4.7-6.1); WHITE BLOOD CELLS 8.7 10/3/uL (4.5-10.5)
[2016-06-24 03:21] LABS: MANUAL DIFF NO %
[2016-06-24 03:52] LABS: ALBUMIN 3.3 G/DL (3.5-5.0); ALKALINE PHOSPHATASE 90 U/L (45-117); BUN (BLOOD UREA NITROGEN) 36 MG/DL (6-23); CHLORIDE, SERUM 109 MMOL/L (96-112); CO2 (CARBON DIOXIDE) 23 MMOL/L (24-34); CREATININE 1.42 MG/DL (0.70-1.30); GFR AFRICAN AMERICAN 52 ML/MIN (>=60); GFR NON AFRICAN AMERICAN 45 ML/MIN (>=60); GLOBULIN 3.2 G/DL (2.5-4.1); GLUCOSE, SERUM 153 MG/DL (60-99); POTASSIUM, SERUM 4.7 MMOL/L (3.5-5.3); SGOT(AST) 26 U/L (5-40); SGPT(ALT) 29 U/L (5-65); SODIUM, SERUM 143 MMOL/L (135-148); TOTAL PROTEIN 6.5 G/DL (6.0-8.5); TROPONIN I 0.11 NG/ML (<0.05)
[2016-06-25 06:36] LABS: BASOPHILS 0.2 %; BASOPHILS ABSOLUTE 0.02 10/3/uL (0.0-0.16); EOSINOPHILS 1.3 %; EOSINOPHILS ABSOLUTE 0.15 10/3/uL (0.0-0.53); HEMATOCRIT 34.8 % (40.0-51.0); HEMOGLOBIN 11.4 g/dL (13.6-17.8); IMMATURE GRANULOCYTES 0.2 %; IMMATURE GRANULOCYTES ABSOLUTE 0.02 10/3/uL (0.0-0.11); LYMPHOCYTES 14.8 %; LYMPHOCYTES ABSOLUTE 1.69 10/3/uL (0.67-4.30); MEAN CORPUS HGB CONC 32.8 g/dL (32.0-36.0); MEAN CORPUSCULAR HEMOGLOB 32.6 pg (26.0-34.0); MEAN CORPUSCULAR VOLUME 99.4 fL (80-100); MEAN PLATELET VOLUME 13.3 fL (9.2-13.0); MONOCYTES 7.4 %; MONOCYTES ABSOLUTE 0.84 10/3/uL (0.21-1.20); NEUTROPHILS 76.1 %; PLATELET COUNT 164 10/3/uL (150-400); RBC DISTRIBUTION WIDTH 15.5 % (12.0-16.0); WHITE BLOOD CELLS 11.4 10/3/uL (4.5-10.5)
[2016-06-25 06:37] LABS: MANUAL DIFF NO %
[2016-06-25 06:45] LABS: CALCIUM, SERUM 8.9 MG/DL (8.5-10.4); CHLORIDE, SERUM 107 MMOL/L (96-112); CO2 (CARBON DIOXIDE) 22 MMOL/L (24-34); CREATININE 1.78 MG/DL (0.70-1.30); GFR AFRICAN AMERICAN 39 ML/MIN (>=60); GFR NON AFRICAN AMERICAN 34 ML/MIN (>=60); POTASSIUM, SERUM 3.9 MMOL/L (3.5-5.3); SODIUM, SERUM 141 MMOL/L (135-148)
[2016-06-25 06:46] LABS: BUN (BLOOD UREA NITROGEN) 44 MG/DL (6-23); GLUCOSE, SERUM 118 MG/DL (60-99)
[2016-06-25 06:49] LABS: PARTIAL THROMBO TIME > 150.0 SEC (22.5-37.2)
[2016-06-26 03:39] LABS: BASOPHILS 0.5 %; BASOPHILS ABSOLUTE 0.05 10/3/uL (0.0-0.16); EOSINOPHILS 3.9 %; EOSINOPHILS ABSOLUTE 0.39 10/3/uL (0.0-0.53); IMMATURE GRANULOCYTES 0.2 %; IMMATURE GRANULOCYTES ABSOLUTE 0.02 10/3/uL (0.0-0.11); LYMPHOCYTES ABSOLUTE 1.82 10/3/uL (0.67-4.30); MEAN CORPUS HGB CONC 33.3 g/dL (32.0-36.0); MEAN CORPUSCULAR HEMOGLOB 33.6 pg (26.0-34.0); MEAN CORPUSCULAR VOLUME 100.8 fL (80-100); MEAN PLATELET VOLUME 13.1 fL (9.2-13.0); MONOCYTES ABSOLUTE 0.81 10/3/uL (0.21-1.20); NEUTROPHILS 69.4 %; NEUTROPHILS ABSOLUTE 7.03 10/3/uL (2.02-8.40); PLATELET COUNT 142 10/3/uL (150-400); RBC DISTRIBUTION WIDTH 15.1 % (12.0-16.0); RED CELL COUNT 3.57 10/6/uL (4.7-6.1); WHITE BLOOD CELLS 10.1 10/3/uL (4.5-10.5)
[2016-06-26 03:40] LABS: MANUAL DIFF NO %
[2016-06-26 03:48] LABS: BUN (BLOOD UREA NITROGEN) 47 MG/DL (6-23); CHLORIDE, SERUM 100 MMOL/L (96-112); CO2 (CARBON DIOXIDE) 26 MMOL/L (24-34); CREATININE 2.03 MG/DL (0.70-1.30); GFR AFRICAN AMERICAN 34 ML/MIN (>=60); GFR NON AFRICAN AMERICAN 29 ML/MIN (>=60); GLUCOSE, SERUM 104 MG/DL (60-99); POTASSIUM, SERUM 3.8 MMOL/L (3.5-5.3); SODIUM, SERUM 136 MMOL/L (135-148)
[2016-06-27 10:32] LABS: BUN (BLOOD UREA NITROGEN) 45 MG/DL (6-23); CALCIUM, SERUM 9.1 MG/DL (8.5-10.4); CHLORIDE, SERUM 103 MMOL/L (96-112); CO2 (CARBON DIOXIDE) 25 MMOL/L (24-34); CREATININE 1.92 MG/DL (0.70-1.30); GFR AFRICAN AMERICAN 36 ML/MIN (>=60); GFR NON AFRICAN AMERICAN 31 ML/MIN (>=60); POTASSIUM, SERUM 3.3 MMOL/L (3.5-5.3); SODIUM, SERUM 138 MMOL/L (135-148)
[2016-06-27 10:33] LABS: GLUCOSE, SERUM 129 MG/DL (60-99)
[2016-06-28 07:23] LABS: BASOPHILS 0.2 %; BASOPHILS ABSOLUTE 0.02 10/3/uL (0.0-0.16); EOSINOPHILS 0.4 %; EOSINOPHILS ABSOLUTE 0.04 10/3/uL (0.0-0.53); HEMATOCRIT 35.4 % (40.0-51.0); HEMOGLOBIN 11.6 g/dL (13.6-17.8); IMMATURE GRANULOCYTES 0.2 %; IMMATURE GRANULOCYTES ABSOLUTE 0.02 10/3/uL (0.0-0.11); LYMPHOCYTES 8.2 %; LYMPHOCYTES ABSOLUTE 0.78 10/3/uL (0.67-4.30); MEAN CORPUS HGB CONC 32.8 g/dL (32.0-36.0); MEAN CORPUSCULAR HEMOGLOB 32.3 pg (26.0-34.0); MEAN CORPUSCULAR VOLUME 98.6 fL (80-100); MEAN PLATELET VOLUME 13.4 fL (9.2-13.0); MONOCYTES ABSOLUTE 0.57 10/3/uL (0.21-1.20); NEUTROPHILS ABSOLUTE 8.04 10/3/uL (2.02-8.40); PLATELET COUNT 146 10/3/uL (150-400); RBC DISTRIBUTION WIDTH 15.2 % (12.0-16.0); RED CELL COUNT 3.59 10/6/uL (4.7-6.1); WHITE BLOOD CELLS 9.5 10/3/uL (4.5-10.5)
[2016-06-28 07:28] LABS: MANUAL DIFF NO %
[2016-06-28 07:32] LABS: ALBUMIN 3.4 G/DL (3.5-5.0); BUN (BLOOD UREA NITROGEN) 38 MG/DL (6-23); CALCIUM, SERUM 9.1 MG/DL (8.5-10.4); CHLORIDE, SERUM 107 MMOL/L (96-112); CO2 (CARBON DIOXIDE) 23 MMOL/L (24-34); CREATININE 1.67 MG/DL (0.70-1.30); GFR AFRICAN AMERICAN 43 ML/MIN (>=60); GFR NON AFRICAN AMERICAN 37 ML/MIN (>=60); GLUCOSE, SERUM 183 MG/DL (60-99); PHOSPHORUS, SERUM 2.6 MG/DL (2.5-4.5); POTASSIUM, SERUM 3.8 MMOL/L (3.5-5.3); SODIUM, SERUM 142 MMOL/L (135-148)
[2016-06-29 06:20] LABS: BASOPHILS 0.1 %; BASOPHILS ABSOLUTE 0.01 10/3/uL (0.0-0.16); EOSINOPHILS 0.3 %; EOSINOPHILS ABSOLUTE 0.04 10/3/uL (0.0-0.53); HEMATOCRIT 33.1 % (40.0-51.0); HEMOGLOBIN 11.1 g/dL (13.6-17.8); IMMATURE GRANULOCYTES 0.2 %; IMMATURE GRANULOCYTES ABSOLUTE 0.03 10/3/uL (0.0-0.11); LYMPHOCYTES 8.9 %; LYMPHOCYTES ABSOLUTE 1.07 10/3/uL (0.67-4.30); MEAN CORPUS HGB CONC 33.5 g/dL (32.0-36.0); MEAN CORPUSCULAR HEMOGLOB 33.8 pg (26.0-34.0); MEAN CORPUSCULAR VOLUME 100.9 fL (80-100); MEAN PLATELET VOLUME 13.3 fL (9.2-13.0); MONOCYTES 6.6 %; MONOCYTES ABSOLUTE 0.79 10/3/uL (0.21-1.20); NEUTROPHILS 83.9 %; NEUTROPHILS ABSOLUTE 10.11 10/3/uL (2.02-8.40); PLATELET COUNT 155 10/3/uL (150-400); RBC DISTRIBUTION WIDTH 15.6 % (12.0-16.0); RED CELL COUNT 3.28 10/6/uL (4.7-6.1); WHITE BLOOD CELLS 12.1 10/3/uL (4.5-10.5)
[2016-06-29 06:21] LABS: MANUAL DIFF NO %
[2016-06-29 06:29] LABS: ALBUMIN 3.6 G/DL (3.5-5.0); BUN (BLOOD UREA NITROGEN) 41 MG/DL (6-23); CHLORIDE, SERUM 105 MMOL/L (96-112); CO2 (CARBON DIOXIDE) 24 MMOL/L (24-34); CREATININE 1.72 MG/DL (0.70-1.30); GFR AFRICAN AMERICAN 41 ML/MIN (>=60); GFR NON AFRICAN AMERICAN 35 ML/MIN (>=60); GLUCOSE, SERUM 156 MG/DL (60-99); PHOSPHORUS, SERUM 2.6 MG/DL (2.5-4.5); POTASSIUM, SERUM 3.9 MMOL/L (3.5-5.3); SODIUM, SERUM 139 MMOL/L (135-148)
[2016-06-29 08:41] LABS: CHOL/HDL RATIO(NOT ORDER) 2.2 (0-5); CHOLESTEROL 124 MG/DL (< 200); HDL CHOLESTEROL 57 MG/DL (> 39); LDL CHOLESTEROL 55 MG/DL (< 130); NON-HDL CHOLESTEROL 67 MG/DL (< 160); TRIGLYCERIDE 62 MG/DL (< 150)
[2016-06-29 08:54] LABS: INTERNATIONAL NORMAL RATI 1.3 UNITS (-); PROTIME (NOT ORD) 16.4 SEC (12.0-14.5)
[2016-06-30 05:47] LABS: BASOPHILS 0.2 %; BASOPHILS ABSOLUTE 0.02 10/3/uL (0.0-0.16); EOSINOPHILS 0.7 %; EOSINOPHILS ABSOLUTE 0.09 10/3/uL (0.0-0.53); HEMOGLOBIN 9.5 g/dL (13.6-17.8); IMMATURE GRANULOCYTES 0.2 %; IMMATURE GRANULOCYTES ABSOLUTE 0.03 10/3/uL (0.0-0.11); LYMPHOCYTES 13.3 %; LYMPHOCYTES ABSOLUTE 1.64 10/3/uL (0.67-4.30); MEAN CORPUS HGB CONC 33.2 g/dL (32.0-36.0); MEAN CORPUSCULAR VOLUME 99.3 fL (80-100); MEAN PLATELET VOLUME 13.3 fL (9.2-13.0); MONOCYTES 11.2 %; MONOCYTES ABSOLUTE 1.38 10/3/uL (0.21-1.20); NEUTROPHILS 74.4 %; NEUTROPHILS ABSOLUTE 9.16 10/3/uL (2.02-8.40); PLATELET COUNT 121 10/3/uL (150-400); RBC DISTRIBUTION WIDTH 16.1 % (12.0-16.0); RED CELL COUNT 2.88 10/6/uL (4.7-6.1); WHITE BLOOD CELLS 12.3 10/3/uL (4.5-10.5)
[2016-06-30 06:11] LABS: HEMATOCRIT 28.6 % (40.0-51.0); MANUAL DIFF NO %
[2016-06-30 06:14] LABS: ALBUMIN 3.2 G/DL (3.5-5.0); BUN (BLOOD UREA NITROGEN) 46 MG/DL (6-23); CALCIUM, SERUM 8.9 MG/DL (8.5-10.4); CHLORIDE, SERUM 106 MMOL/L (96-112); CO2 (CARBON DIOXIDE) 27 MMOL/L (24-34); CREATININE 1.57 MG/DL (0.70-1.30); GFR AFRICAN AMERICAN 46 ML/MIN (>=60); GFR NON AFRICAN AMERICAN 40 ML/MIN (>=60); GLUCOSE, SERUM 104 MG/DL (60-99); PHOSPHORUS, SERUM 2.5 MG/DL (2.5-4.5); POTASSIUM, SERUM 4.1 MMOL/L (3.5-5.3); SODIUM, SERUM 140 MMOL/L (135-148)
[2016-07-01 07:24] LABS: BASOPHILS 0.3 %; BASOPHILS ABSOLUTE 0.03 10/3/uL (0.0-0.16); EOSINOPHILS 2.7 %; EOSINOPHILS ABSOLUTE 0.25 10/3/uL (0.0-0.53); HEMATOCRIT 29.3 % (40.0-51.0); HEMOGLOBIN 9.7 g/dL (13.6-17.8); IMMATURE GRANULOCYTES 0.3 %; IMMATURE GRANULOCYTES ABSOLUTE 0.03 10/3/uL (0.0-0.11); LYMPHOCYTES 18.6 %; MEAN CORPUS HGB CONC 33.1 g/dL (32.0-36.0); MEAN CORPUSCULAR HEMOGLOB 33.9 pg (26.0-34.0); MEAN PLATELET VOLUME 12.9 fL (9.2-13.0); MONOCYTES 8.4 %; MONOCYTES ABSOLUTE 0.77 10/3/uL (0.21-1.20); NEUTROPHILS 69.7 %; NEUTROPHILS ABSOLUTE 6.36 10/3/uL (2.02-8.40); PLATELET COUNT 103 10/3/uL (150-400); RBC DISTRIBUTION WIDTH 15.8 % (12.0-16.0); RED CELL COUNT 2.86 10/6/uL (4.7-6.1); WHITE BLOOD CELLS 9.1 10/3/uL (4.5-10.5)
[2016-07-01 07:32] LABS: MANUAL DIFF NO %; MEAN CORPUSCULAR VOLUME 102.4 fL (80-100)
[2016-07-01 07:35] LABS: ALBUMIN 3.3 G/DL (3.5-5.0); BUN (BLOOD UREA NITROGEN) 43 MG/DL (6-23); CALCIUM, SERUM 8.9 MG/DL (8.5-10.4); CHLORIDE, SERUM 106 MMOL/L (96-112); CO2 (CARBON DIOXIDE) 28 MMOL/L (24-34); CREATININE 1.55 MG/DL (0.70-1.30); GFR AFRICAN AMERICAN 47 ML/MIN (>=60); GFR NON AFRICAN AMERICAN 40 ML/MIN (>=60); GLUCOSE, SERUM 95 MG/DL (60-99); PHOSPHORUS, SERUM 2.3 MG/DL (2.5-4.5); POTASSIUM, SERUM 3.9 MMOL/L (3.5-5.3); SODIUM, SERUM 142 MMOL/L (135-148)
[2016-07-01] MEDS ORDERED: COREG6 PO (17:52)
[2016-07-01] MEDS ORDERED: ELIQUIS 2.5 MG2.5 MG PO (18:09)
[2016-09-16] MEDS ORDERED: COREG6 PO (14:59)
== END 2016-07-01 19:28 | disposition home health service (06) | DRG 286 ==
LOC: ER 09:59 → 4SO 16:37 → 6NO 21:43
PROVIDERS: Emergency Medicine; Hospitalist; Internal Medicine; Internal Medicine Cardiovascular Disease; Internal Medicine Nephrology; Nurse Practitioner Adult Health
PROC: 4A023N7 Measurement of Cardiac Sampling and Pressure, Left Heart, Percutaneous Approach (ICD-10-PCS; principal; 2016-06-29)
PROC: B2111ZZ Fluoroscopy of Multiple Coronary Arteries using Low Osmolar Contrast (ICD-10-PCS; 2016-06-29)
PROC: B2151ZZ Fluoroscopy of Left Heart using Low Osmolar Contrast (ICD-10-PCS; 2016-06-29)
DX: I50.23 Acute on chronic systolic (congestive) heart failure (principal); J96.91 Respiratory failure, unspecified with hypoxia; N17.9 Acute kidney failure, unspecified; I42.8 Other cardiomyopathies; R04.2 Hemoptysis; I24.8 Other forms of acute ischemic heart disease; K21.9 Gastro-esophageal reflux disease without esophagitis; E03.9 Hypothyroidism, unspecified; M19.90 Unspecified osteoarthritis, unspecified site; F32.9 Major depressive disorder, single episode, unspecified; I44.7 Left bundle-branch block, unspecified; I49.3 Ventricular premature depolarization; I48.0 Paroxysmal atrial fibrillation; N18.3 Chronic kidney disease, stage 3 (moderate); F41.9 Anxiety disorder, unspecified; I34.0 Nonrheumatic mitral (valve) insufficiency; I48.91 Unspecified atrial fibrillation; Z87.01 Personal history of pneumonia (recurrent); Z87.891 Personal history of nicotine dependence
CPT/HCPCS: 36600; 71010; 71020; 71275; 80048; 80053; 80061; 80069; 81001; 82550; 82553; 82607; 82746; 82805; 83036; 83605; 83615; 83735; 83880; 84100; 84132; 84145; 84439; 84443; 84484; 85025; 85347; 85610; 85652; 85730; 86140; 87040; 87070; 87205; 87804; 92610-GN; 93005; 93458; 94640; 94667; 94668; 97162-GP; 99152; 99291; A9270-GY; C1769; C1894; C8929; G8978-CK-GP; G8979-CI-GP; G8996-CI-GN; G8997-CI-GN; G8998-CI-GN; J1956; J2250; J2543; J2930; J3010; Q9957; Q9967